=== PATIENT | male | born 1970 | race Asian ===

== ENCOUNTER 2020-04-04 16:03 | Outpatient (CLI) | payer BC | END 2020-04-04 19:49 | disposition home or self-care (01) | LOC: LABW 16:03 | PROVIDERS: ATTEND Podiatrist | DX: M10.072 Idiopathic gout, left ankle and foot (principal) | CPT/HCPCS: 36415; 84550; 85652 ==

== ENCOUNTER 2021-10-29 19:34 | Emergency (ER) | payer OTHER ==
[~2021-10-29] VITALS: Ht 182.9 cm; Wt 107.0 kg
[2021-10-29 19:45] VITALS: BP 141/88; TEMP 102.9
[2021-10-29 20:41] LABS: PLATELET COUNT 168 K/uL (142-355)
[2021-10-29 20:51] LABS: POTASSIUM 3.9 mmol/L (3.6-5.2)
== END 2021-10-29 23:56 | disposition home or self-care (01) ==
LOC: ED 19:34
PROVIDERS: Emergency Medicine
DX: R50.9 Fever, unspecified (principal); R79.89 Other specified abnormal findings of blood chemistry; Z20.822 Contact with and (suspected) exposure to COVID-19
CPT/HCPCS: 36415; 80048; 81002; 83605; 84484; 85027; 87040; 87077; 87186; 87205; 87502; 87635; 87651; 93005; 96365; 99284; J0696; U0003